=== PATIENT | female | born 1965 | race Caucasian/White ===

== ENCOUNTER 2018-08-12 08:30 | Day surgery (SDC) | payer OTHER ==
[2018-08-11 10:16] VITALS: BMI 31.1
[2018-08-12] MEDS ORDERED: ONDANSETRON 4 MG/2 ML VIAL IVPUSH PRN (10:59)
[2018-08-12] MEDS ORDERED: oxyCODONE HCL 5 MG TABLET PO PRN ×2 (10:59)
[2018-08-12] MEDS ORDERED: LACTATED RINGERS SOLUTION 1,000 ML IV SCH (11:00)
[2018-08-12] MEDS ORDERED: ceFAZolin SODIUM 1 GM VIAL IVPB ONE (13:12)
[2018-08-12] MEDS ORDERED: LIDOCAINE HCL 1%, 10 MG/ML (50 mL VIAL) IJ ONE (14:20)
--- NOTE | 2018-08-12 15:33 | OP ---
DATE OF OPERATION: 08/12/2018 PREOPERATIVE DIAGNOSIS: Right breast cancer. POSTOPERATIVE DIAGNOSIS: Right breast cancer. PROCEDURE: Right breast wide localized lumpectomy with sentinel node biopsy. SURGEON: Nata Wen MD ANESTHESIA: General. ESTIMATED BLOOD LOSS: Minimal. COMPLICATION: None. DISPOSITION: Stable at end of procedure to recovery. INDICATION FOR PROCEDURE: Patient presented with routine screening mammography that noted a new spiculated density in the upper inner right breast. She underwent a stereotactic needle biopsy of this that showed an invasive carcinoma. My recommendation was lumpectomy with sentinel node biopsy. The procedure was discussed with all the questions answered. PROCEDURE IN DETAIL: Patient was brought to [facility] in [place], taken down to breast imaging. Wire was used to localize the clip in the upper inner right breast. She was then brought to Nuclear Medicine where I injected technetium laced with sulfur colloid as an intradermal injection in the right 2 o'clock areolar border. She was then brought up to the operating room and after induction of general anesthesia and IV antibiotics, 5 mL of isosulfan blue dye was injected into the right subareolar plexus and the breast was massaged for 5 minutes. Next, the breast and axilla were prepped and draped in the usual sterile fashion. A 4 cm incision was made in the right axilla, carried down through the clavipectoral fascia to identify 4 sentinel lymph nodes. The 1st one was blue and hot. The 2nd was hot but not blue, and the 3rd one was hot, not blue as was the 4th which was hot, not blue. There did not seem to be any other blue dye radioactivity within the right axilla. Therefore, once hemostasis was assured, the right breast lumpectomy was performed. A curvilinear incision was made in the upper inner right breast and the wire was used as a guide to get down to the area of interest. This was excised en bloc, tagged with a long stitch lateral, short stitch superior, sent for specimen radiograph. Hemostasis was assured with electrocautery. The specimen radiograph showed the clip and wire to be intact within the specimen as well as the density in the center of the specimen. This was sent to Pathology for permanent section. Hemostasis again assured with electrocautery. The parenchyma was approximated with interrupted 2-0 Vicryl, skin approximated with interrupted 3-0 Vicryl, running 4-0 Prolene. A sterile dressing with Tegaderm and 4 x 4's applied. Next, I checked the axilla for bleeding and there was none there. However, I did notice a small tiny blue lymph node. This was taken as right axillary sentinel node number 5 blue. Once hemostasis was assured, the axillary incision was also closed in a routine fashion with interrupted 3-0 Vicryl, running 4-0 Prolene. A sterile dressing with Tegaderm and 4 x 4's was applied. She tolerated the procedure well, was extubated on the operating room table, taken to recovery in good condition. Conchis [id number]
[2018-08-12 18:48] VITALS: BP 132/90; PULSE 110; TEMP 98.2
--- NOTE | 2018-08-14 15:45 | PATH ---
Surgical Pathology Report Patient Name: DASH MATA [facility]. Rec. #: [id number] /Age/Gender: 1965 (Age: 53) / F Account: [id number] Location: [facility] SUR[facility] Taken: 08/12/2018 Received: 08/12/2018 Reported: 08/14/2018 Physicians: Nata Wen M.D. Specimen(s) Received A: RIGHT BREAST LUMPECTOMY B: RIGHT AXILLARY SENTINEL LYMPH NODE #1 C: RIGHT AXILLARY SENTINEL LYMPH NODE #2 D: RIGHT AXILLARY SENTINEL LYMPH NODE #3 E: RIGHT AXILLARY SENTINEL LYMPH NODE #4 F: RIGHT AXILLARY SENTINEL LYMPH NODE #5 Clinical History Right breast cancer Final Diagnosis A. BREAST, RIGHT, LUMPECTOMY: INVASIVE DUCTAL CARCINOMA, MODERATELY DIFFERENTIATED (TUBULE SCORE: 3/3, NUCLEAR GRADE: 2/3, MITOTIC SCORE: 1/3; TOTAL IRINA SCORE: 6/9). INVASIVE CARCINOMA MEASURES 5.5 MM IN GREATEST MICROSCOPIC DIMENSION. NO DUCTAL CARCINOMA IN SITU (DCIS) IDENTIFIED NO LYMPHOVASCULAR INVASION IDENTIFIED. SURGICAL MARGINS ARE UNINVOLVED BY CARCINOMA; CARCINOMA IS AT 1.2 CM FROM CLOSEST ANTERIOR MARGIN, ALL OTHER MARGINS ARE WIDELY FREE. REMAINDER OF BREAST PARENCHYMA SHOWS FOCAL ATYPICAL DUCTAL AND LOBULAR HYPERPLASIA IN A BACKGROUND OF FIBROCYSTIC CHANGES INCLUDING STROMAL FIBROSIS, MICROCYSTS, APOCRINE METAPLASIA, SCLEROSING ADENOSIS, AND ASSOCIATED MICROCALCIFICATIONS PRIOR BIOPSY SITE CHANGES ARE PRESENT. PATHOLOGIC STAGE (pTNM): pT1b pN0(sn). SEE INVASIVE CARCINOMA CASE SUMMARY BELOW. B. AXILLARY SENTINEL LYMPH NODE #1, RIGHT, EXCISION: ONE LYMPH NODE NEGATIVE FOR CARCINOMA (0/1). C. AXILLARY SENTINEL LYMPH NODE #2, RIGHT, EXCISION: ONE LYMPH NODE NEGATIVE FOR CARCINOMA (0/1). D. AXILLARY SENTINEL LYMPH NODE #3, RIGHT, EXCISION: ONE LYMPH NODE NEGATIVE FOR CARCINOMA (0/1). E. AXILLARY SENTINEL LYMPH NODE #4, RIGHT, EXCISION: ONE LYMPH NODE NEGATIVE FOR CARCINOMA (0/1). F. AXILLARY SENTINEL LYMPH NODE #5, RIGHT, EXCISION: BENIGN FIBROADIPOSE TISSUE. LYMPHOID TISSUE IDENTIFIED. Comment: Immunohistochemical stain performed and interpreted at [facility] show the carcinoma is E-cadherin positive, supportive of ductal phenotype. Comments Breast Invasive Carcinoma: Surgical Pathology Case Summary (Based on AJCC TNM 8 th edition) Procedure _X_ Excision (less than total mastectomy) Specimen Laterality _X_ Right Tumor Size _X_ Greatest dimension of largest invasive focus >1 mm (millimeters): 5.5 mm Histologic Type _X_ Invasive carcinoma of no special type (ductal, not otherwise specified) Histologic Grade (Irina Histologic Score) Glandular (Acinar)/Tubular Differentiation _X__ Score 3 (<10% of tumor area forming glandular/tubular structures) Nuclear Pleomorphism _X__ Score 2 Mitotic Rate _X__ Score 1 Overall Grade _X__ Grade 2 (scores of 6) Tumor Focality _X__ Single focus of invasive carcinoma Ductal Carcinoma In Situ (DCIS) _X__ No DCIS in specimen Margins Invasive Carcinoma Margins _X__ Uninvolved by invasive carcinoma Distance from closest margin (millimeters): 12 mm Closest margin: Anterior DCIS Margins _X__ No DCIS in specimen Regional Lymph Nodes _X__ Uninvolved by tumor cells Number of Lymph Nodes Examined: 4 Number of Dewar Nodes Examined: 4 Treatment Effect _X__ No known presurgical therapy Lymphovascular Invasion _X__ Not identified Pathologic Stage Classification (pTNM, AJCC 8th Edition) Primary Tumor (Invasive Carcinoma) (pT) _X__ pT1b: Tumor >5 mm but =10 mm in greatest dimension Category (pN) _X__ pN0: No regional lymph node metastasis identified or ITCs only Biomarker Studies Results of ER and DE studies performed on this specimen (block# A3) at [facility] are as follows: ER (clone [id number] mouse monoclonal antibody by [employer]): ~99% nuclear staining with moderate to strong intensity (Positive). DE (clone16 mouse monoclonal antibody by [employer]): ~99% nuclear staining with strong intensity (Positive). Results of Her2 and Ki67 studies will be reported separately in an addendum. Positive and negative controls (internal if applicable) show appropriate results. Formalin fixation and cold ischemic times are within current ASCO/CAP recommendations for ER, DE and Her2 testing. Electronically Signed Margi Brown M.D. Addendum Reported: 08/27/2018 Addendum Diagnosis Results of Her2 (IHC) & Ki-67 studies performed on block "A3 " at [place], [place] ([id number]) are as follows: Her2 IHC (EP3 from [employer], formerly known as [id number], using [employer] Polymer Refine detection kit): 0 (Negative). Ki-67: ~20% (Intermediate proliferative index). HER2 by FISH will be performed as per request of clinician (Dr. Veliz). Findings will be reported separately. Positive and negative controls (internal if applicable) show appropriate results. Margi Brown M.D. Addendum Reported: 08/29/2018 Addendum Diagnosis Her2 Analysis by FISH performed and interpreted at [facility] shows the following: INTERPRETATION: Negative Probe: Her2 3.6 Probe: CEP17 2.6 Ratio: 1.4 Approved scoring guideline >= 2.0 = Amplified <= 2.0 = Not amplified See [facility] report ([id number]) Margi Brown M.D. Addendum Reported: 09/16/2018 Addendum Diagnosis Oncotype DX Breast Recurrence performed and interpreted at [place], [place] shows the following: RESULTS: Recurrence Score Result (RS) Distant Recurrence Risk at 9 years Absolute Chemotherapy Benefit 13 With AI or DE JESUS Alone 4% RS 11-25 All Ages <1% See Oncotype DX report (Report #: [id number]) for additional details. Stephanie Pineda M.D. Gross Description A. Received fresh on an [employer]uGrid, labeled "right breast lumpectomy," is a 7.5 x 6.2 x 3.3 cm. fraser-yellow, irregular, portion of fibroadipose tissue with a needle localization wire present. There is a short suture marking the superior aspect and a long suture marking the lateral aspect, per the surgeon. There is no skin or nipple present. The specimen is inked as follows: superior and lateral blue; inferior green; medial yellow; anterior red; deep black. The specimen is serially sectioned from superior to inferior. Sectioning reveals a 0.8 x 0.8 x 0.6 cm firm, ill-defined fibrous tissue mass surrounded by fat necrosis. The mass is 1 cm from the anterior margin and 0.9 cm from the deep margin. The surrounding fat necrosis abuts the medial margin. The remaining breast parenchyma displays multiple foci of firm fibrocystic tissue. Compressor Engineer sections are submitted in 12 cassettes as follows: 1-full face section of mass with anterior and deep margins; 1-9-[place]ong[place] sections of mass with anterior and deep margins; 4-5-fibrous tissue and fat necrosis surrounding mass with medial margin; 6-8-fibrous tissue and fat necrosis surrounding mass (each with medial, anterior and deep margins); 5-42-xpymwftelo fibrous tissue, each with lateral and anterior margins; 11-superior margin; 12-inferior margin. Time to formalin fixation: 43 minutes Total formalin fixation time: Approximately 27 hours. B. Received in formalin labeled "right axillary sentinel lymph node #1," is a 1.1 x 0.8 x 0.5 cm lymph node with attached fat. The specimen is bisected and entirely submitted in one cassette. C. Received in formalin labeled "right axillary sentinel lymph node #2," is a 0.8 x 0.6 x 0.5 cm lymph node. The specimen is bisected and entirely submitted in one cassette. D. Received in formalin labeled "right axillary sentinel lymph nodes #3," is a 1.3 x 1.0 x 0.5 cm fraser lymph node. The specimen is bisected and entirely submitted in one cassette. E. Received in formalin labeled "right axillary sentinel lymph node #4," is a 1.0 x 0.6 x 0.4 cm lymph node. The specimen is bisected and entirely submitted in one cassette. F. Received in formalin labeled "right axillary sentinel lymph node #5," is a 1.0 x 0.8 x 0.1 cm portion of yellow, lobulated adipose tissue. No discrete lymph node is identified. The specimen is submitted in toto in one cassette. 08/13/2018 saudi08/13/2018
== END 2018-08-12 16:15 | disposition home or self-care (01) ==
LOC: JASU-SURG 08:30
PROVIDERS: ATTEND Surgery
PROC: 0HBT0ZZ Excision of Right Breast, Open Approach (ICD-10-PCS; principal; 2018-08-12 12:00)
DX: C50.911 Malignant neoplasm of unspecified site of right female breast (principal)
CPT/HCPCS: 19281; 78195-TC; 88307-TC; 88342-TC; 94760; A9541